=== PATIENT | female | born 1965 | race Hispanic/Latino ===

== ENCOUNTER 2017-03-14 04:25 | Emergency (ER) | payer SELFPAY ==
[~2017-03-14 04:25] MED LIST: ADRENALIN ONE; CALCIUM CHLORIDE IV ONE; SODIUM BICARBONATE IV ONE
--- NOTE | 2017-03-14 05:02 | Emergency Department Report ---
HPI - General Time Seen by Provider: 03/14/17 04:52 - HPI HPI: 52-year-old female presents to the emergency department in cardiac arrest from home. She was found by her in the living room clutching an inhaler but she was pulseless, nonbreathing and she was cold to touch. He called EMS who found the patient in asystole. They placed an LMA, began doing chest compressions, started ACLS protocol and drove her to [facility] for further evaluation. In route the patient received 3 rounds of epinephrine, bag valve ventilation and continuous chest compressions. Patient had a known history of COPD and had multiple cardiac/coronary stents. The later said that the patient had not been sick recently. When the patient arrived to [facility] she was still pulseless, unresponsive and in asystole. ED Past Medical Hx - Past Medical History Hx Hypertension: Yes (2004) Hx Heart Attack/AMI: Yes (2004) Hx Asthma: Yes Hx COPD: Yes (COPD) Hx HIV: No Additional medical history: coronary artery disease, chronic back pain. cholesterol - Surgical History Hx Coronary Stent: Yes (2012) Additional Surgical History: tonsillectomy - Social History Smoking Status: Never Smoker - Medications Home Medications: Home Medications Medication Instructions Recorded Confirmed Last Taken Type Carvedilol [Coreg] 6.25 mg PO BID 06/14/13 09/29/14 06/14/13 11:00 History Furosemide [Lasix] 40 mg PO DAILY 06/14/13 09/29/14 06/14/13 11:00 History Lisinopril [Zestril TAB] 20 mg PO QDAY 06/14/13 09/29/14 06/14/13 11:00 History Rosuvastatin (Nf) [Crestor] 20 mg PO DAILY 09/29/14 09/29/14 Unknown History Aspirin [Aspirin TAB] 325 mg PO QDAY #30 tablet 10/04/14 Unknown Rx Carvedilol [Coreg] 6.25 mg PO BID #60 tablet 10/04/14 Unknown Rx Clopidogrel [Plavix] 75 mg PO QDAY #30 tablet 10/04/14 Unknown Rx Nicotine [Habitrol] 21 mg TD QDAY #30 patch 10/04/14 Unknown Rx Rosuvastatin (Nf) [Crestor] 20 mg PO DAILY #30 tablet 10/04/14 Unknown Rx ED Review of Systems ROS: Stated complaint: CARDIAC ARREST Other details as noted in HPI Comment: Unobtainable due to pts medical conditions Physical Exam - Physical Exam Physical Exam: GENERAL: Patient is ill-appearing and unresponsive. HEENT: Normocephalic. Pupils are fixed and dilated. NECK: Supple. Trachea is midline. CHEST/LUNGS: There are no spontaneous lung sounds. HEART/CARDIOVASCULAR: No spontaneous heart sounds. ABDOMEN: Abdomen is soft. SKIN: Skin is cool but dry. NEURO: Patient is unresponsive to verbal, tactile or painful stimuli and does not follow any commands. MUSCULOSKELETAL: There is no deformity. No spontaneous movement of the extremities. There was no palpable pulse to the radial or femoral regions. ED Medical Decision Making - Medical Decision Making Patient presented to the ER in asystole, with ACLS protocol underway. She already received an LMA, 3 rounds of epinephrine and continuous chest compressions. She was still pulseless, unresponsive and in asystole upon arrival to bed 19. We continued chest compressions. There was good bilateral breath sounds heard with the LMA and bag valve ventilation. The patient was given epinephrine and sodium bicarbonate. During our first pulse and rhythm check, the patient was pulseless and in asystole. She then received epinephrine and calcium. The second pulse and rhythm check showed the patient to be pulseless and in asystole. She received another round of epinephrine. The third pulse and rhythm check found the patient to be in asystole. At this point the patient received 6 total rounds of epinephrine, one of sodium bicarbonate, 1 of calcium. I took the ultrasound and placed it over the heart and there was absolutely 0 movement, squeeze or even fibrillation. Time of was called for 431A. I later went and spoke to the patient's to let him know of her expiration. - Differential Diagnosis cardiac arrest Critical Care Time: Yes Critical care time in (mins) excluding proc time.: 15 Critical care attestation.: If time is entered above; I have spent that time in minutes in the direct care of this critically ill patient, excluding procedure time. Critical care time was spent on this patient during her initial evaluation, supervision of ACLS protocol and discussion with family. Critical Care Time: 15 minutes ED Disposition Clinical Impression: Cardiac arrest Respiratory failure Qualifiers: Chronicity: acute Respiratory failure complication: unspecified whether with hypoxia or hypercapnia Qualified Code(s): J96.00 - Acute respiratory failure, unspecified whether with hypoxia or hypercapnia Disposition: DC-20 Is pt being admited?: No Referrals: PRIMARY CARE,MD [Primary Care Provider] - 3-5 Days Time of Disposition: 05:03
== END 2017-03-14 06:15 ==
LOC: ED 04:25
DX: I46.9 Cardiac arrest, cause unspecified (principal); J96.90 Respiratory failure, unspecified, unspecified whether with hypoxia or hypercapnia; I10 Essential (primary) hypertension; I25.2 Old myocardial infarction; J44.9 Chronic obstructive pulmonary disease, unspecified; I25.10 Atherosclerotic heart disease of native coronary artery without angina pectoris; Z95.1 Presence of aortocoronary bypass graft
CPT/HCPCS: 92950; 99285; J0171